=== PATIENT | male | born 1970 | race Asian ===

== ENCOUNTER 2018-08-22 18:17 | Emergency (ER) | payer BC ==
[~2018-08-22] VITALS: Ht 162.6 cm; Wt 87.1 kg
[2018-08-22 18:20] VITALS: Ht 162.6 cm; Wt 87.1 kg
[2018-08-22 19:55] LABS: PLATELET COUNT 279 x10^3mcL (130-400)
[2018-08-22 19:56] LABS: RED CELL DISTRIBUTION WIDTH 15.6 % (11.5-14.5)
[2018-08-22 20:20] LABS: CALCIUM 8.9 mg/dL (8.5-10.1); CARBON DIOXIDE 26.1 mmol/L (21-32); CHLORIDE SERUM 102 mmol/L (98-107); CREATININE SERUM 1.2 mg/dL (0.7-1.3); GFR1 > 60 mL/min; GLUCOSE SERUM 102 mg/dL (74-106); POTASSIUM SERUM 4.3 mmol/L (3.5-5.1); SODIUM SERUM 138 mmol/L (136-145)
[2018-08-22 20:24] LABS: ALBUMIN 4.4 g/dL (3.4-5.0); ALKALINE PHOSPHATASE 75 U/L (46-116); ALT/SGPT 55 U/L (16-63); AST/SGOT 29 U/L (15-37); BILIRUBIN TOTAL 0.6 mg/dL (0.20-1.00); TOTAL PROTEIN, SERUM 7.9 g/dL (6.4-8.2); URIC ACID 7.6 mg/dL (3.5-7.2)
[2018-08-22 20:31] LABS: C REACTIVE PROTEIN 1.3 mg/dL (<=0.9)
[2018-08-22 20:55] VITALS: BP 102/75
== END 2018-08-22 20:55 | disposition home or self-care (01) ==
LOC: ED 18:17
PROVIDERS: Emergency Medicine
DX: R07.89 Other chest pain (principal); M10.9 Gout, unspecified; L40.9 Psoriasis, unspecified; F41.9 Anxiety disorder, unspecified; Z88.1 Allergy status to other antibiotic agents
CPT/HCPCS: J1885; J2270; J2405; Q0092